=== PATIENT | female | born 1985 | race Caucasian/White ===

== ENCOUNTER 2025-06-30 23:11 | Inpatient (IN) ==
--- NOTE | 2025-06-30 23:38 | Emergency Department Note ---
Impression & Plan Sepsis, Mastitis, Hypomagnesemia admit to the [facility] ED Provider Note NAME: RUPA LUI AGE: 40 SEX: Female INFORMANT: Patient ED PROVIDER(S): Sarah Mason DO CHIEF COMPLAINT: Right breast pain PLAN: Disposition: Admit to the [facility] MEDICAL DECISION MAKING: This is a 40-year-old female patient presents to the emergency department with right sided breast pain/chest pain. Symptoms started around 730 this evening and were associated with fever, headache, vomiting and fatigue. On physical exam, the patient has obvious mastitis to the right breast. She is not currently breast-feeding and her youngest child is 8. she does describe having a previous episode of mastitis while she was breast-feeding. Laboratory studies reveal white blood cell count of 13.9 with 89% neutrophils consistent with a left shift. Lactate was positive at 2.8. Patient's hemoglobin is slightly low at 11.5. Glucose is stable at 110. Renal function was normal. Magnesium was low at 1.4. Overall, patient appears to be septic from a right breast mastitis. Her pain was treated with IV Toradol and IV Dilaudid. She started on IV vancomycin after blood cultures were obtained. Care/management discussed with: manager bridge and [facility] Triage Nursing notes: reviewed and agree With them. Vital Signs: reviewed and remarkable for tachycardia and fever Additional History obtained from: patient's was at the bedside Chronic Medical/Social Conditions affecting care: none Differential Diagnosis: sepsis, mastitis, pneumonia, cellulitis Diagnostics, independently interpreted by me: ECG: sinus tachycardia at a rate of 109. There is no ST segment elevation or signs of ischemia Cardiac Monitoring: sinus tachycardia at 114 Imaging studies: portable chest x-ray: no acute pulmonary infiltrates or consolidation as per my independent interpretation. HPI: 40 year old Female arrives for evaluation of Right-sided breast pain. patient explains that she has been feeling fatigued over the past couple of days but tonight around 7:30 PM spiked a high fever and developed severe right sided breast pain. She also describes a headache and nausea/vomiting. PAST MEDICAL HISTORY: Anxiety, SOCIAL HISTORY: patient is on [employer] and lives with her and children. She is not currently breast-feeding. Her youngest child is 8 years old. HOME MEDICATIONS: See list ALLERGIES: none VITALS: See Below PHYSICAL EXAMINATION: HEENT: Head - normocephalic and atraumatic. Pupils are equal, round, and reactive to light. Extraocular eye muscles are intact, and sclera are anicteric. Nose - moist nasal mucosa without discharge. Mouth - moist buccal mucosa. Oropharynx is nonerythematous and there is no tonsillar exudate or edema noted. Neck: Supple; no JVD, nuchal rigidity, cervical lymphadenopathy. Chest: Exquisite tenderness to palpation of the right breast. There is erythema and warmth noted to the inferior In the middle aspect of the breast. Heart: Tachycardic rate and regular rhythm. There is a normal S1 and S2 with no murmurs, clicks, or gallops appreciated. Lungs: Clear to auscultation bilaterally with no wheezes, rales, or rhonchi. Abdomen: Soft, completely nontender, nondistended, with good bowel sounds. There are no palpable pulsatile masses or hepatosplenomegaly. There is no guarding, rigidity, or rebound noted. Extremities: No evidence of cyanosis, clubbing, or edema. There are easily palpable peripheral pulses. Skin: warm and dry with good turgor and no rashes. emergency department treatment: pvc monitor, IV normal saline bolus-30 mL/kg per ideal body weight. IV Toradol, IV Zofran and IV Dilaudid. IV vancomycin, IV Tylenol, IV magnesium replacement emergency department course: The patient was evaluated in room C-10. A complete history and physical was performed. A septic protocol was performed. The patient was bolused at 30 mL/kg of normal saline per ideal body weight. She was given a dose of IV Dilaudid and IV Zofran for significant pain she was experiencing in her right breast. After blood cultures were obtained, the patient was started on IV vancomycin. She was given a dose of IV Tylenol for fever. She had persistent pain with given a dose of IV Toradol. Patient was noted to be hypomagnesemic. She was started on IV magnesium replacement. The case was discussed [facility] the [facility] and they will evaluate for further inpatient care. Overall, the patient is feeling slightly better. I have personally spent greater than 30 minutes of critical care time in the direct management of this patient. This includes bedside care, interpretation of diagnostic studies, and testing, discussion with consultants, patient, and family members, and other required patient management activities. This 30 minutes is in excess of all separately billable procedures. Past Med/Surg History Problem List (Updated 07/01/25 @ 03:10 by Sarah Mason DO) Hypomagnesemia (Acute) Mastitis (Acute) Sepsis (Acute) Social History Smoking Status: Never smoker Preferred Language: [place] Feels Safe at Home: Yes Allergies Allergies Allergy/AdvReac Type Severity Reaction Status Date / Time No Known Allergies Allergy Verified 07/01/25 00:16 Home Meds Home Medications Medication Instructions Recorded Confirmed clonazepam 0.5 mg tablet 0.5 mg PO BID PRN Anxiety 07/01/25 07/01/25 desvenlafaxine succinate 50 mg 50 mg PO DAILY 07/01/25 07/01/25 tablet,extended release 24 hr (Pristiq) Results & Data (ED) Vital Signs Vital Signs - 24 hr 06/30/25 23:12 06/30/25 23:20 06/30/25 23:20 Temperature 39.3 C H Temperature Source Oral Pulse Rate 114 H Pulse Rate [Finger] 105 H Pulse Rate from SpO2 Sensor Pulse Rhythm Regular Pulse Rhythm [Finger] Regular Pulse Strength Normal Pulse Strength [Finger] Normal Respiratory Rate 20 20 Respiratory Effort / Characteristics Non-Labored Spontaneous Non-Labored Spontaneous Respiratory Depth Normal Normal Respiratory Pattern Regular Regular Blood Pressure 152/82 H Blood Pressure [Left Arm] 142/81 H Blood Pressure Mean 105 Blood Pressure Mean [Left Arm] 101 Blood Pressure Position [Left Arm] Pulse Oximetry 99 95 Oxygen Delivery Method Room Air Room Air Room Air Sepsis Recent Fever Within 48 Hours No Sepsis New/Unexplained Change in Mental Status No Sepsis Action Taken by Nursing Physician Notified 06/30/25 23:39 07/01/25 00:00 07/01/25 00:15 Temperature Temperature Source Pulse Rate 110 H 103 H 99 H Pulse Rate [Finger] Pulse Rate from SpO2 Sensor 218 H 102 H Pulse Rhythm Pulse Rhythm [Finger] Pulse Strength Pulse Strength [Finger] Respiratory Rate 22 22 22 Respiratory Effort / Characteristics Respiratory Depth Respiratory Pattern Blood Pressure 132/78 122/76 124/71 Blood Pressure [Left Arm] Blood Pressure Mean 96 91 86 Blood Pressure Mean [Left Arm] Blood Pressure Position [Left Arm] Pulse Oximetry 97 94 95 Oxygen Delivery Method Sepsis Recent Fever Within 48 Hours Sepsis New/Unexplained Change in Mental Status Sepsis Action Taken by Nursing 07/01/25 00:30 07/01/25 00:45 07/01/25 01:18 Temperature Temperature Source Pulse Rate 90 84 86 Pulse Rate [Finger] Pulse Rate from SpO2 Sensor 86 84 Pulse Rhythm Pulse Rhythm [Finger] Pulse Strength Pulse Strength [Finger] Respiratory Rate 24 24 23 Respiratory Effort / Characteristics Respiratory Depth Respiratory Pattern Blood Pressure 120/73 129/73 103/58 L Blood Pressure [Left Arm] Blood Pressure Mean 80 91 73 Blood Pressure Mean [Left Arm] Blood Pressure Position [Left Arm] Pulse Oximetry 96 96 95 Oxygen Delivery Method Sepsis Recent Fever Within 48 Hours Sepsis New/Unexplained Change in Mental Status Sepsis Action Taken by Nursing 07/01/25 01:20 Temperature 36.9 C Temperature Source Oral Pulse Rate Pulse Rate [Finger] 83 Pulse Rate from SpO2 Sensor Pulse Rhythm Pulse Rhythm [Finger] Regular Pulse Strength Pulse Strength [Finger] Normal Respiratory Rate 20 Respiratory Effort / Characteristics Non-Labored Spontaneous Respiratory Depth Normal Respiratory Pattern Blood Pressure Blood Pressure [Left Arm] 103/58 L Blood Pressure Mean Blood Pressure Mean [Left Arm] 73 Blood Pressure Position [Left Arm] Lying Pulse Oximetry 95 Oxygen Delivery Method Room Air Sepsis Recent Fever Within 48 Hours Sepsis New/Unexplained Change in Mental Status Sepsis Action Taken by Nursing Laboratory Data 06/30/25 23:28 06/30/25 23:28 Lab Results 06/30/25 07/01/25 07/01/25 Range/Units 23:28 01:07 01:29 WBC 13.94 H (4.8-10.8) K/ul RBC 4.38 (4.20-5.40) M/uL Hgb 11.5 L (12.0-16.0) g/dl Hct 34.8 L (37.0-47.0) % MCV 79.5 L (80.0-100.0) fL MCH 26.3 (25.0-34.0) pg MCHC 33.0 (32.0-36.0) g/dL RDW Std Deviation 41.2 (36.4-46.3) fL RDW Coeff of Gypsy 14.3 (11.5-14.5) % Plt Count 286 (130-400) K/uL MPV 9.5 (9.4-12.4) fL Immature Gran % (Auto) 0.6 % Neut % (Auto) 89.0 % Lymph % (Auto) 4.2 % [place] % (Auto) 5.4 % Eos % (Auto) 0.6 % Baso % (Auto) 0.2 % Neut # (Auto) 12.41 H (1.40-6.50) K/uL Lymph # (Auto) 0.59 L (1.20-3.40) K/uL [place] # (Auto) 0.75 H (0.11-0.59) K/uL Eos # (Auto) 0.08 (0.00-0.50) K/uL Baso # (Auto) 0.03 (0.00-0.20) K/uL Immature Gran # (Auto) 0.08 (0.01-0.20) K/uL Sodium 134 L (136-145) mmol/L Potassium 3.4 L (3.5-5.1) mmol/L Chloride 100 (98-107) mmol/L Carbon Dioxide 23 (21-32) mmol/L Anion Gap 11 (3-11) BUN 7 (6-23) mg/dl Creatinine 0.64 (0.6-1.2) mg/dl Est Cr Clr Drug Dosing 136.6 ml/min eGFR 115.21 BUN/Creatinine Ratio 10.9 (10-20) Glucose 110 H (70-99(Fasting)) mg/dl Lactate 2.8 H* 2.2 H* (0.4-2.0) mmol/L Calcium 8.8 (8.6-10.3) mg/dl Magnesium 1.4 L (1.7-2.4) mg/dl Total Bilirubin 0.7 (0.2-1.0) mg/dl Direct Bilirubin 0.1 (0-0.2) mg/dl AST 18 (13-39) U/L ALT 15 (7-52) U/L Alkaline Phosphatase 69 (34-104) U/L Troponin I High Sens < 2.3 (0-14) pg/ml Total Protein 6.9 (6.0-8.3) gm/dl Albumin 4.0 (3.4-5.0) gm/dl Procalcitonin 0.17 (0-0.5) ng/ml Urine Color Yellow Urine Appearance Clear (Clear) Urine pH 6.5 (4.5-7.5) Ur Specific [place] 1.010 (1.000-1.030) Urine Protein Negative (Negative) Urine Glucose (UA) Negative (Negative) Urine Ketones Negative (Negative) Urine Blood Negative (Negative) Urine Nitrite Negative (Negative) Urine Bilirubin Negative (Negative) Urine Urobilinogen Negative (Negative) Ur Leukocyte Esterase Negative (Negative) Urine Test Negative (Negative) Urine Comment Administered Medications Magnesium Sulfate/Dextrose (Magnesium Sulfate / D5w) 1 gm in 100 mls @ 50 mls/hr IV ONE STA Stop: 07/01/25 03:42 Last Admin: 07/01/25 02:16 Dose: 50 mls/hr Documented By: FLORENCIA Discontinued Medications Acetaminophen (Acetaminophen 500 Mg Tab) 1,000 mg PO NOW STA Stop: 06/30/25 23:33 Last Admin: 07/01/25 00:02 Dose: Not Given Documented By: FLORENCIA Hydromorphone HCl (Hydromorphone Inj 0.5 Mg/0.5 Ml Syr) 0.5 mg IV NOW STA Stop: 06/30/25 23:33 Last Admin: 06/30/25 23:40 Dose: 0.5 mg Documented By: FLORENCIA Sodium Chloride (Nss) 1,000 mls @ 999 mls/hr IV .Q1H1M LINDA Stop: 07/01/25 01:30 Last Infusion: 07/01/25 01:58 Dose: Infused Documented By: Admin: 07/01/25 00:45 Dose: 999 mls/hr Documented By: Infusion: 07/01/25 00:45 Dose: Infused Documented By: Admin: 06/30/25 23:42 Dose: 999 mls/hr Documented By: FLORENCIA Vancomycin HCl 2,000 mg/ (Sodium Chloride) 540 mls @ 200 mls/hr IV NOW ONE Stop: 07/01/25 02:23 Last Admin: 07/01/25 00:30 Dose: 200 mls/hr Documented By: FLORENCIA Acetaminophen (Ofirmev) 1,000 mg in 100 mls @ 400 mls/hr IV NOW STA Stop: 07/01/25 00:11 Last Infusion: 07/01/25 00:31 Dose: Infused Documented By: Admin: 07/01/25 00:12 Dose: 400 mls/hr Documented By: FLORENCIA Magnesium Sulfate/Dextrose (Magnesium Sulfate / D5w) 1 gm in 100 mls @ 100 mls/hr IV NOW STA Stop: 07/01/25 01:37 Last Infusion: 07/01/25 02:15 Dose: Infused Documented By: Admin: 07/01/25 01:14 Dose: 100 mls/hr Documented By: FLORENCIA Ioversol (Optiray 320 125ml) 118 ml IV ONCE ONE Stop: 07/01/25 02:56 Last Admin: 07/01/25 02:55 Dose: 118 ml Documented By: JASBIR Ketorolac Tromethamine (Ketorolac Tromethamine 15 Mg/Ml Vial) 15 mg IV NOW STA Stop: 06/30/25 23:33 Last Admin: 06/30/25 23:40 Dose: 15 mg Documented By: FLORENCIA Ondansetron HCl (Ondansetron Inj 2 Mg/Ml 2 Ml Vial) 4 mg IV NOW STA Stop: 06/30/25 23:33 Last Admin: 06/30/25 23:40 Dose: 4 mg Documented By: FLORENCIA Potassium Chloride (Potassium Chloride Crtab 20 Meq Tabcr) 40 meq PO NOW STA Stop: 07/01/25 01:38 Last Admin: 07/01/25 02:17 Dose: 40 meq Documented By: FLORENCIA Discharge Plan Visit Data Chief Complaint: Breast Pain/Problems Stated Complaint: PAIN UNDER RT ARM, RT BREAST, HEADACHE, VOMITING ED Provider: Sarah Mason Discharge Problem: Sepsis, Mastitis, Hypomagnesemia Condition: Critical Forms Stand Alone Forms: [facility] Prescriptions Prescriptions: No Action clonazepam 0.5 mg Tablet 0.5 mg PO BID PRN (Reason: Anxiety) desvenlafaxine succinate [Pristiq] 50 mg Tablet Extended Release 24 Hr 50 mg PO DAILY Referrals Referrals: PCP,NO [Primary Care Provider] -
[2025-06-30] MEDS: KETOROLAC TROMETHAMINE 15 MG/ML VIAL IV STA (23:40)
[2025-06-30] MEDS: ACETAMINOPHEN 500 MG TAB PO STA (23:40)
[2025-06-30] MEDS: ONDANSETRON INJ 2 MG/ML 2 ML VIAL IV STA (23:40)
[2025-06-30] MEDS: HYDROmorphone INJ 0.5 MG/0.5 ML SYR IV STA (23:40)
[2025-06-30] MEDS: SODIUM CHLORIDE 0.9% 1,000 ML IV SCH (23:42)
[2025-06-30] MEDS ORDERED: VANCOMYCIN CONSULT ACTIVE PRN (23:42)
[2025-07-01 00:12] LABS: Hematocrit (blood only) 34.8 % (37.0-47.0); Hemoglobin 11.5 g/dl (12.0-16.0); Immature Granulocytes # (auto) 0.08 K/uL (0.01-0.20); Immature Granulocytes % (auto) 0.6 %; Mean Corpuscular Hemoglobin 26.3 pg (25.0-34.0); Mean Corpuscular Volume 79.5 fL (80.0-100.0); Platelet Count 286 K/uL (130-400); RDW Standard Deviation 41.2 fL (36.4-46.3); Red Blood Count 4.38 M/uL (4.20-5.40); White Blood Count 13.94 K/ul (4.8-10.8)
[2025-07-01] MEDS: ACETAMINOPHEN 1,000 MG/100 ML VIAL IV STA (00:12)
[2025-07-01 00:28] LABS: Alanine Aminotransferase 15 U/L (7-52); Alkaline Phosphatase 69 U/L (34-104); Anion Gap 11 (3-11); Bilirubin,Total 0.7 mg/dl (0.2-1.0); Blood Urea Nitrogen 7 mg/dl (6-23); Calcium 8.8 mg/dl (8.6-10.3); Carbon Dioxide 23 mmol/L (21-32); Chloride 100 mmol/L (98-107); Creatinine Clr Calc Pharmacy 136.6 ml/min; Glucose 110 mg/dl (70-99(Fasting)); Magnesium 1.4 mg/dl (1.7-2.4); Potassium 3.4 mmol/L (3.5-5.1); Sodium 134 mmol/L (136-145); Total Protein 6.9 gm/dl (6.0-8.3)
[2025-07-01] MEDS: VANCOMYCIN HCL 2,000 MG in SODIUM CHLORIDE 0.9% 500 ML IV ONE (00:30)
[2025-07-01] MEDS: MAGNESIUM SULFATE / D5W 1 GM/100 ML BAG IV STA ×2 (01:14→02:16)
[2025-07-01 01:24] LABS: Appearance Urine Clear (Clear); Glucose Urine UA Negative (Negative)
--- NOTE | 2025-07-01 01:40 | History & Physical Report ---
Date of Service July 01, 2025 Assessment & Plan (1) Severe sepsis: Plan: Assessment and plan below following discussion of case with ED provider and reviewing patient history/pertinent normal/abnormal diagnostic test results. Severe sepsis SIRS plus lactic acidosis Secondary to right breast mastitis rule out abscess Bilateral forearm pruritic lesions possible poison johana dermatitis Hyperglycemia rule out DM Hypokalemia, hyperglycemia New onset anemia possibly from heavy menses Incidental finding of thyroid nodule Mood disorder, stable Admit to med/tele CS, doxycycline and Zosyn Monitor lactic acid response to IVF Ultrasound right breast rule out abscess General Surgery consult if ultrasound shows abscess. N.p.o. until ultrasound resulted. Topical steroid course for possible poison johana dermatitis. Check TSH, outpatient thyroid ultrasound Check hemoglobin A1c Replace electrolytes Anemia workup, outpatient Special Distribution Clerk consult for heavy menses DVT prophylaxis. SCDs Re: Heavy menses Full code Patient requesting updates providers. Mr. Carmelo Posada, contact #[phone]. Text document was generated using [employer] voice recognition software. It may contain grammatical or spelling errors. Kindly contact undersigned for clarification of any documentation item in question. History of Present Illness Chief Complaint: Right breast swelling Primary Care Provider: NO PCP History obtained from patient, family, and records. Medical history significant for mood disorder. Last week, patient noted achy bumps on her right armpit. Yesterday, patient noticed progressive painful swelling of the right breast. Patient currently not breast-feeding. No recollection of trauma. Pleuritic chest pain from right breast swelling with SOB. No cough symptoms. Self-limited episodes of mastitis when she was breast-feeding her children in the past. Achy headache symptoms from being sick. Nausea, emesis symptoms without abdominal pain. Patient currently with menses which is usually heavy. Vancomycin administered at the ER. 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 Allergies Allergy/AdvReac Type Severity Reaction Status Date / Time No Known Allergies Allergy Verified 07/01/25 00:16 Home Medications Medication Instructions Recorded Confirmed Type clonazepam 0.5 mg tablet 0.5 mg PO BID PRN Anxiety 07/01/25 07/01/25 History desvenlafaxine succinate 50 mg 50 mg PO DAILY 07/01/25 07/01/25 History tablet,extended release 24 hr (Pristiq) Past Med/Surg History Problem List (Updated 07/01/25 @ 06:33 by Kirit Mathews MD) Severe sepsis Hypomagnesemia (Acute) Mastitis (Acute) Sepsis (Acute) Social History Smoking Status: Never smoker Hx Alcohol Use: No Hx Substance Use: No Preferred Language: Ethiopian Communication Ability: Effective Beam Racker Required: No Current Living Situation: Family Feels Safe at Home: Yes Assistive Devices: Denture - Upper, Denture - Lower and Glasses Review of Systems Review of Systems: As per HPI, itchy rash on both forearms noticed after being outside home a few days ago, all other systems reviewed and negative Physical Exam Physical Exam: GENERAL: Slightly uncomfortable, obese, no respiratory distress SKIN: Pallor, warm HEENT: Pale palpebral conjunctivae, no ptosis, dry buccal mucosa NECK : Supple, no tenderness CHEST : CTA, tender right breast swelling HEART : Tachycardic, no obvious murmurs ABDOMEN: Some distention, nontender EXTREMITIES : Thickened brownish patch right wrist and left forearm with superficial blister, no LE swelling/tenderness, palpable pulses, no other conspicuous deformities noted NEUROLOGIC : Coherent, no facial asymmetry, no other gross focality Results & Data Results & Data Vital Signs (Past 12 Hours) Vital Signs Temp Pulse Pulse Resp BP BP Pulse Ox 07/01/25 01:20 36.9 C 83 20 103/58 L 95 07/01/25 00:45 84 24 129/73 96 07/01/25 00:30 90 24 120/73 96 07/01/25 00:15 99 H 22 124/71 95 07/01/25 00:00 103 H 22 122/76 94 06/30/25 23:39 110 H 22 132/78 97 06/30/25 23:20 06/30/25 23:20 105 H 20 142/81 H 95 06/30/25 23:12 39.3 C H 114 H 20 152/82 H 99 O2 Del Method 07/01/25 01:20 Room Air 07/01/25 00:45 07/01/25 00:30 07/01/25 00:15 07/01/25 00:00 06/30/25 23:39 06/30/25 23:20 Room Air 06/30/25 23:20 Room Air 06/30/25 23:12 Room Air Laboratory Results Laboratory Results WBC 13.94 K/ul (4.8-10.8) H 06/30/25: RBC 4.38 M/uL (4.20-5.40) 06/30/25: Hgb 11.5 g/dl (12.0-16.0) L 06/30/25: Hct 34.8 % (37.0-47.0) L 06/30/25: MCV 79.5 fL (80.0-100.0) L 06/30/25: MCH 26.3 pg (25.0-34.0) 06/30/25: MCHC 33.0 g/dL (32.0-36.0) 06/30/25: RDW Std Deviation 41.2 fL (36.4-46.3) 06/30/25: RDW Coeff of Gypsy 14.3 % (11.5-14.5) 06/30/25 Plt Count 286 K/uL (130-400) 06/30/25: MPV 9.5 fL (9.4-12.4) 06/30/25: Immature Gran % (Auto) 0.6 % 06/30/25: Neut % (Auto) 89.0 % 06/30/25: Lymph % (Auto) 4.2 % 06/30/25: [place] % (Auto) 5.4 % 06/30/25: Eos % (Auto) 0.6 % 06/30/25: Baso % (Auto) 0.2 % 06/30/25: Neut # (Auto) 12.41 K/uL (1.40-6.50) H 06/30/25: Lymph # (Auto) 0.59 K/uL (1.20-3.40) L 06/30/25: [place] # (Auto) 0.75 K/uL (0.11-0.59) H 06/30/25: Eos # (Auto) 0.08 K/uL (0.00-0.50) 09/18/25 23:28 Baso # (Auto) 0.03 K/uL (0.00-0.20) 06/30/25 23:28 Immature Gran # (Auto) 0.08 K/uL (0.01-0.20) 06/30/25 23:28 Sodium 134 mmol/L (136-145) L 06/30/25 23:28 Potassium 3.4 mmol/L (3.5-5.1) L 06/30/25 23: Chloride 100 mmol/L (98-107) 06/30/25 23: Carbon Dioxide 23 mmol/L (21-32) 06/30/25 23: Anion Gap 11 (3-11) 06/30/25 23: BUN 7 mg/dl (6-23) 06/30/25 23: Creatinine 0.64 mg/dl (0.6-1.2) 06/30/25 23: Est Cr Clr Drug Dosing 136.6 ml/min 06/30/25 23: eGFR 115.21 06/30/25 23: BUN/Creatinine Ratio 10.9 (10-20) 06/30/25 23: Glucose 110 mg/dl (70-99(Fasting)) H 06/30/25 23: Lactate 2.8 mmol/L (0.4-2.0) H* 06/30/25 23: Calcium 8.8 mg/dl (8.6-10.3) 06/30/25 23: Magnesium 1.4 mg/dl (1.7-2.4) L 06/30/25 23: Total Bilirubin 0.7 mg/dl (0.2-1.0) 06/30/25 23: Direct Bilirubin 0.1 mg/dl (0-0.2) 06/30/25 23: AST 18 U/L (13-39) 06/30/25 23: ALT 15 U/L (7-52) 06/30/25 23: Alkaline Phosphatase 69 U/L (34-104) 06/30/25 23: Troponin I High Sens < 2.3 pg/ml (0-14) 06/30/25 23: Total Protein 6.9 gm/dl (6.0-8.3) 06/30/25 23:28 Albumin 4.0 gm/dl (3.4-5.0) 06/30/25 23:28 Procalcitonin 0.17 ng/ml (0-0.5) 06/30/25 23:28 Urine Color Yellow 07/01/25 01:07 Urine Appearance Clear (Clear) 07/01/25 01:07 Urine pH 6.5 (4.5-7.5) 07/01/25 01:07 Ur Specific [place] 1.010 (1.000-1.030) 07/01/25 01:07 Urine Protein Negative (Negative) 07/01/25 01:07 Urine Glucose (UA) Negative (Negative) 07/01/25 01:07 Urine Ketones Negative (Negative) 07/01/25 01:07 Urine Blood Negative (Negative) 07/01/25 01:07 Urine Nitrite Negative (Negative) 07/01/25 01:07 Urine Bilirubin Negative (Negative) 07/01/25 01:07 Urine Urobilinogen Negative (Negative) 07/01/25 01:07 Ur Leukocyte Esterase Negative (Negative) 07/01/25 01:07 Urine Comment 07/01/25 01:07 CT chest: Diffuse ground-glass hase with subpleural atelectasis are noted involving both lower lobes - possibility of sequelae of recent infection likely Adequate contrast bolus without evidence of pulmonary embolism. The central airways are patent. The lungs are clear. No pleural effusion. The heart, aorta, and pulmonary arteries are of normal size and configuration. There are no appreciable coronary artery and aortic atherosclerotic calcifications. No pericardial effusion is identified. The thyroid shows a 17 mm nodule in right lobe- advised ultrasound correlation. No mediastinal, hilar, or axillary lymphadenopathy is noted. No suspicious lytic or sclerotic osseous lesions are identified. IMPRESSION: Diffuse ground-glass hase with subpleural atelectasis are noted involving both lower lobes - possibility of sequelae of recent infection likely No evidence of pulmonary embolism. No obvious mass seen in visualized part of left breast- advised clinical correlation and ultrasound. Diagnostic Findings EKG as per my interpretation : rate 110, sinus tachycardia, normal axis, incomplete RBBB, no ischemia
[2025-07-01] MEDS ORDERED: AMPICILLIN/SULBACTAM SOD 3,000 MG/100 ML BAG IV STA (01:42)
[2025-07-01] MEDS: POTASSIUM CHLORIDE CRTAB 20 MEQ TABCR PO STA (02:17)
[2025-07-01] MEDS: OPTIRAY 320 125ml IV ONE (02:55)
--- NOTE | 2025-07-01 03:09 | XRay Report ---
Exam(s): XR CXR 1 VIEW EXAM: XR Chest, 1 View CLINICAL HISTORY: Reason for exam: Sepsis. TECHNIQUE: Frontal view of the chest. COMPARISON: No relevant prior studies available. FINDINGS: Lungs: Mild to moderate peribronchial thickening of the central lower lobe bronchi. No consolidation. Pleural space: Unremarkable. No pneumothorax. Heart: Unremarkable. No cardiomegaly. Mediastinum: Unremarkable. Normal mediastinal contour. Bones/joints: Unremarkable. No acute fracture. IMPRESSION: Bronchitis, which may be of infectious or inflammatory etiologies. No consolidation or pleural effusion. Electronically signed by: Maci Leyva MD 07/01/25 03:09 AM
--- NOTE | 2025-07-01 03:38 | CT Scan Report ---
EXAM: CT angio chest PE protocol CLINICAL HISTORY: cp sob, L breast swelling TECHNIQUE: Contiguous axial images were obtained from the neck base through the upper abdomen following intravenous administration of iodinated contrast material. Angiographic images were processed, 3D MIP images were acquired for interpretation. If IV contrast material had not been administered, the likelihood of detecting abnormalities relevant to the patient's condition would have been substantially decreased. Coronal and sagittal 3-D MIPs were likewise performed and indicated to increase the sensitivity of detectin diffuse clinically relevant pathology. CT scan was performed according to ALARA (as low as reasonably achievable). COMPARISON: None. FINDINGS: Diffuse ground-glass hase with subpleural atelectasis are noted involving both lower lobes - possibility of sequelae of recent infection likely Adequate contrast bolus without evidence of pulmonary embolism. The central airways are patent. The lungs are clear. No pleural effusion. The heart, aorta, and pulmonary arteries are of normal size and configuration. There are no appreciable coronary artery and aortic atherosclerotic calcifications. No pericardial effusion is identified. The thyroid shows a 17 mm nodule in right lobe- advised ultrasound correlation. No mediastinal, hilar, or axillary lymphadenopathy is noted. No suspicious lytic or sclerotic osseous lesions are identified. IMPRESSION: Diffuse ground-glass hase with subpleural atelectasis are noted involving both lower lobes - possibility of sequelae of recent infection likely No evidence of pulmonary embolism. No obvious mass seen in visualized part of left breast- advised clinical correlation and ultrasound. Electronically signed by Sulaiman Hawkins 07-01-2025 03:37 AM
[2025-07-01] MEDS: POTASSIUM CHLORIDE 20 MEQ in LACTATED RINGER'S 1,000 ML IV STA (04:40)
[2025-07-01] MEDS: PIPERACILLIN/TAZOBACTAM 4.5 GM/100 ML BAG IV STA (04:46)
[2025-07-01] MEDS: KETOROLAC TROMETHAMINE 15 MG/ML VIAL IV PRN (05:15)
[2025-07-01] MEDS: LORATADINE 10 MG TAB PO ONE (05:36)
[2025-07-01] MEDS: CLOBETASOL PROPIONATE 0.05% CREAM 15 GM TUBE EXT SCH (05:36)
[2025-07-01] MEDS: diphenhydrAMINE 2%/ZINC 0.1% CREAM 28.4GM TUBE EXT PRN (05:36)
[2025-07-01 07:41] LABS: Hematocrit (blood only) 33.8 % (37.0-47.0); Hemoglobin 11.4 g/dl (12.0-16.0); Mean Corpuscular Hemoglobin 27.4 pg (25.0-34.0); Mean Corpuscular Volume 81.3 fL (80.0-100.0); Platelet Count 257 K/uL (130-400); RDW Standard Deviation 42.9 fL (36.4-46.3); Red Blood Count 4.16 M/uL (4.20-5.40); Reticulocytes # 0.050 10^6/uL (0.020-0.100); White Blood Count 19.50 K/ul (4.8-10.8)
[2025-07-01] MEDS ORDERED: AMPICILLIN/SULBACTAM SOD 3,000 MG/100 ML BAG IV SCH (08:00)
[2025-07-01 08:01] LABS: Immature Granulocytes # (auto) 0.13 K/uL (0.01-0.20); Immature Granulocytes % (auto) 0.7 %
[2025-07-01 08:03] LABS: Anion Gap 7.0 (3-11); Blood Urea Nitrogen 5.0 mg/dl (6-23); Calcium 7.7 mg/dl (8.6-10.3); Carbon Dioxide 23.0 mmol/L (21-32); Chloride 106.0 mmol/L (98-107); Creatinine Clr Calc Pharmacy 153.2 ml/min; Glucose 119.0 mg/dl (70-99(Fasting)); Iron 16.0 mcg/dl (35-150); Magnesium 2.2 mg/dl (1.7-2.4); Potassium 4.1 mmol/L (3.5-5.1); Sodium 136.0 mmol/L (136-145); Transferrin 297.0 mg/dl (200-360)
[2025-07-01 08:15] LABS: Ferritin 26.2 ng/ml (8-388); Thyroid Stimulating Hormone 3.141 uIu/ml (0.300-4.500)
[2025-07-01 08:20] LABS: Folate (Folic Acid),Ser orPlas 10.44 ng/ml (>5.38)
[2025-07-01 08:21] LABS: Vitamin B12 493.0 pg/ml (180-914)
[2025-07-01 08:43] LABS: Hemoglobin A1C 5.8 % (4.5-5.6)
--- NOTE | 2025-07-01 09:28 | Electrocardiogram Report ---
Test Reason : Blood Pressure : */* mmHG Vent. Rate : 109 BPM Atrial Rate : 109 BPM P-R Int : 146 ms QRS Dur : 78 ms QT Int : 332 ms P-R-T Axes : 39 41 32 degrees QTcB Int : 447 ms Sinus tachycardia Otherwise normal ECG No previous ECGs available Confirmed by Koko Anderson ([id number]) on 07/01/2025 9:27:48 AM Referred By: REFERRED SELF Confirmed By: Koko Anderson
[2025-07-01] MEDS: PROMETHAZINE 12.5 MG/50.5 ML BAG IV PRN (09:42)
[2025-07-01] MEDS: DOXYCYCLINE HYCLATE 100 MG CAP PO SCH (09:42)
[2025-07-01] MEDS: clonazePAM 0.5 MG TAB PO PRN (09:43)
[2025-07-01] MEDS: PIPERACILLIN/TAZOBACTAM 4.5 GM/100 ML BAG IV SCH (09:44)
[2025-07-01] MEDS ORDERED: ONDANSETRON INJ 2 MG/ML 2 ML VIAL IV PRN (12:25)
--- NOTE | 2025-07-01 12:34 | Communication Note ---
Date of Service: July 01, 2025 Patient was seen and examined at bedside. 40-year-old female with PMH of mood disorder presents with painful swelling of the right breast and achy bumps on her right armpit. 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 No recollection of trauma, patient not breast-feeding currently. Patient denies any cough symptoms or fever at home. She has a history of self-limited episodes of mastitis when she was breast-feeding her children in the past. Patient had associated symptoms of nausea, emesis without abdominal pain. Patient also has history of heavy menses. Patient is being managed for the following: Admitting imagings: CXR: Bronchitis, which may be of infectious or inflammatory etiologies. No consolidation or pleural effusion. CTA chest: No PE, no abnormality noted in right breast, Diffuse ground-glass base with subpleural atelectasis are noted involving both lower lobes - possibility of sequelae of recent infection likely. The thyroid shows a 17 mm nodule in right lobe- advised ultrasound correlation. Right mastitis, rule out abscess Severe sepsis POA: Secondary to above. Lactic acid elevated and SARS positive at presentation. Patient presents with painful swelling of right breast, acute bumps in right armpit. See above. Lyme screen and MRSA nares neg. CTA chest as above, await US right breast. General Surgery consult if ultrasound shows abscess. Patient's temperature getting slightly better, pulse rate getting slightly better. Lactic acidosis resolved status post IV fluid. C/w gentle ivf since pt w/ poor po intake iso infection. Follow admitting blood culture, continue with doxycycline 07/01 and Zosyn 07/01. Infectious disease consult. Possible bronchitis: Likely in the setting of recent viral illness. CXR as above. Patient on antibiotic as above. Bilateral forearm pruritic lesion, possible poison johana dermatitis: Continue with steroid cream. New onset anemia: Possibly in the setting of heavy menses. Hemoglobin of 11.5 at presentation, iron profile with low iron, vitamin B12 and folate level WNL. Initiate iron supplementation once acute illness is over. Repeat iron levels/vitamin levels in 3 months as an outpatient. 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 Hypokalemia: Admitting potassium 3.4, repleted, resolved. Monitor. Incidental finding of thyroid nodule: As per CTA chest, see above. TSH wnl. Thyroid ultrasound as an outpatient. Mood disorder: Stable DVT prophylaxis. SCDs Re: Heavy menses Full code Patient Mr. Carmelo Posada, contact #[phone]. Updated plan of care at bedside. Text document was generated using [employer] voice recognition software. It may contain grammatical or spelling errors. Kindly contact undersigned for clarification of any documentation item in question. For detailed information on the patient, refer to today's H&P note.
--- NOTE | 2025-07-01 13:09 | Ultrasound Report ---
US breast RT limited CLINICAL HISTORY: swelling ro abscess COMPARISON STUDY: None FINDINGS: There is mild edema in the region of clinical concern in the right breast. No abscess seen. IMPRESSION: No abscess seen at the right breast. ACT 112: Negative or not required by law. Electronically signed by: Celestino Aponte M.D. 07/01/2025 1:08 PM
[2025-07-01] MEDS: SODIUM CHLORIDE 0.9% 1,000 ML IV SCH (14:32)
[2025-07-01] MEDS: ACETAMINOPHEN 325 MG TAB PO PRN (17:09)
[2025-07-02 06:20] LABS: Hematocrit (blood only) 29.9 % (37.0-47.0); Hemoglobin 9.9 g/dl (12.0-16.0); Mean Corpuscular Hemoglobin 27.3 pg (25.0-34.0); Mean Corpuscular Volume 82.4 fL (80.0-100.0); Platelet Count 244 K/uL (130-400); RDW Standard Deviation 45.0 fL (36.4-46.3); Red Blood Count 3.63 M/uL (4.20-5.40); White Blood Count 7.87 K/ul (4.8-10.8)
[2025-07-02 06:30] LABS: Anion Gap 3.0 (3-11); Blood Urea Nitrogen 6.0 mg/dl (6-23); Calcium 7.6 mg/dl (8.6-10.3); Carbon Dioxide 24.0 mmol/L (21-32); Chloride 110.0 mmol/L (98-107); Creatinine Clr Calc Pharmacy 145.6 ml/min; Glucose 116.0 mg/dl (70-99(Fasting)); Magnesium 2.1 mg/dl (1.7-2.4); Potassium 3.9 mmol/L (3.5-5.1); Sodium 137.0 mmol/L (136-145)
[2025-07-02] MEDS: DESVENLAFAXINE SUCCINATE ER TABLET PO SCH (07:53)
[2025-07-02] MEDS: POLYETHYLENE (MIRALAX) 17 GM PACK PO PRN (09:58)
--- NOTE | 2025-07-02 12:11 | Hospitalist Progress Note ---
Date of Service July 02, 2025 Assessment & Plan (1) Severe sepsis: Plan 40-year-old female with PMH of mood disorder presents with painful swelling of the right breast and achy bumps on her right armpit. 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 No recollection of trauma, patient not breast-feeding currently. Patient denies any cough symptoms or fever at home. She has a history of self-limited episodes of mastitis when she was breast-feeding her children in the past. Patient had associated symptoms of nausea, emesis without abdominal pain. Patient also has history of heavy menses. Patient is being managed for the following: Admitting imagings: CXR: Bronchitis, which may be of infectious or inflammatory etiologies. No consolidation or pleural effusion. CTA chest: No PE, no abnormality noted in right breast, Diffuse ground-glass base with subpleural atelectasis are noted involving both lower lobes - possibility of sequelae of recent infection likely. The thyroid shows a 17 mm nodule in right lobe- advised ultrasound correlation. Right mastitis, rule out abscess Severe sepsis POA: Secondary to above. Lactic acid elevated and SARS positive at presentation. Patient presents with painful swelling of right breast, acute bumps in right armpit. See above. Lyme screen and MRSA nares neg. CTA chest as above, await US right breast. General Surgery consult if ultrasound shows abscess. Vitals getting better, patient afebrile and pulse rate WNL. Lactic acidosis resolved status post IV fluid. Patient picking up on appetite, DC IV fluids. Follow admitting blood culture - NG24H, continue with doxycycline 07/01 and Zosyn 07/01. Patient reports significant improvement in right breast swelling/redness/pain. If continues to improve, possible DC tomorrow with oral antibiotic with the plan for close follow-up with PCP. Plan has been discussed with patient and her at bedside. Possible bronchitis: Likely in the setting of recent viral illness. CXR as above. Patient on antibiotic as above. Bilateral forearm pruritic lesion, possible poison johana dermatitis: Continue with steroid cream. New onset anemia: Possibly in the setting of heavy menses. Hemoglobin of 11.5 at presentation, iron profile with low iron, vitamin B12 and folate level WNL. Initiate iron supplementation once acute illness is over. Repeat iron levels/vitamin levels in 3 months as an outpatient. 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 Patient and her updated about anemia and need for supplement therapy and need for ongoing monitoring for anemia w/ PCP office. Hyperglycemia, Prediabetic: A1c of 5.8, recommended lifestyle modification/weight loss, repeat A1c in 3 months and follow-up with PCP for long-term monitoring. Patient and her has been updated. Hypokalemia: Admitting potassium 3.4, repleted, resolved. Monitor. Incidental finding of thyroid nodule: As per CTA chest, see above. TSH wnl. Thyroid ultrasound as an outpatient. Patient and her has been updated. Mood disorder: Stable DVT prophylaxis. SCDs Re: Heavy menses Full code Patient Mr. Carmelo Posada, contact #[phone]. Updated plan of care at bedside. Text document was generated using [employer] voice recognition software. It may contain grammatical or spelling errors. Kindly contact undersigned for clarification of any documentation item in question. Admission and Anticipated Discharge Date Admission Date: July 01, 2025 Subjective Patient was seen and examined at bedside. Patient was sitting up in chair, on room air, NAD, resting comfortably. Patient reports significant improvement in her pain and swelling under right breast, reports feeling better significantly. Patient has been afebrile since last night, has been able to eat better. Patient's at bedside who was also updated on plan of care. Physical Exam Physical Exam: GENERAL: RA, NAD, obese, no respiratory distress SKIN: Pallor, warm HEENT: Pale palpebral conjunctivae, no ptosis, moist buccal mucosa NECK : Supple, no tenderness CHEST : CTA, Rt breast erythema/swelling/tenderness improving. HEART : RRR, HR in 90s, no obvious murmurs ABDOMEN: No distention, nontender EXTREMITIES : Thickened brownish patch right wrist and left forearm with superficial blister, no LE swelling/tenderness, palpable pulses, no other conspicuous deformities noted NEUROLOGIC : Coherent, no facial asymmetry, no other gross focality Results & Data Results & Data Vital Signs (Past 12 Hours) Vital Signs Temp Pulse Pulse Resp BP Pulse Ox O2 Del Method 07/02/25 11:55 37.3 C 90 20 108/74 97 Room Air 07/02/25 08:14 36.5 C 83 20 100/66 96 Room Air 07/02/25 07:20 92 H 07/02/25 02:18 37.9 C H 80 16 102/64 93 Room Air
[2025-07-03 02:45] VITALS: RESP 16
[2025-07-03 06:26] LABS: Hematocrit (blood only) 33.5 % (37.0-47.0); Hemoglobin 11.1 g/dl (12.0-16.0); Mean Corpuscular Hemoglobin 27.3 pg (25.0-34.0); Mean Corpuscular Volume 82.3 fL (80.0-100.0); Platelet Count 282 K/uL (130-400); RDW Standard Deviation 44.9 fL (36.4-46.3); Red Blood Count 4.07 M/uL (4.20-5.40); White Blood Count 5.39 K/ul (4.8-10.8)
[2025-07-03 07:21] LABS: Anion Gap 7.0 (3-11); Blood Urea Nitrogen 4.0 mg/dl (6-23); Calcium 8.7 mg/dl (8.6-10.3); Carbon Dioxide 25.0 mmol/L (21-32); Chloride 107.0 mmol/L (98-107); Creatinine Clr Calc Pharmacy 145.6 ml/min; Glucose 113.0 mg/dl (70-99(Fasting)); Potassium 4.0 mmol/L (3.5-5.1); Sodium 139.0 mmol/L (136-145)
[2025-07-03 08:00] VITALS: PULSE 63; TEMP 98.4; O2SAT 96
--- NOTE | 2025-07-03 10:15 | Discharge Summary ---
Date of Service July 03, 2025 Admission HPI Per Admitting Provider History obtained from patient, family, and records. Medical history significant for mood disorder. Last week, patient noted achy bumps on her right armpit. Yesterday, patient noticed progressive painful swelling of the right breast. Patient currently not breast-feeding. No recollection of trauma. Pleuritic chest pain from right breast swelling with SOB. No cough symptoms. Self-limited episodes of mastitis when she was breast-feeding her children in the past. Achy headache symptoms from being sick. Nausea, emesis symptoms without abdominal pain. Patient currently with menses which is usually heavy. Vancomycin administered at the ER. 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 Admission Exam Per Admitting Provider GENERAL: Slightly uncomfortable, obese, no respiratory distress SKIN: Pallor, warm HEENT: Pale palpebral conjunctivae, no ptosis, dry buccal mucosa NECK : Supple, no tenderness CHEST : CTA, tender right breast swelling HEART : Tachycardic, no obvious murmurs ABDOMEN: Some distention, nontender EXTREMITIES : Thickened brownish patch right wrist and left forearm with superficial blister, no LE swelling/tenderness, palpable pulses, no other conspicuous deformities noted NEUROLOGIC : Coherent, no facial asymmetry, no other gross focality Principal Diagnosis Right mastitis, ruled out abscess Severe sepsis POA Possible bronchitis Possible poison johana dermatitis New onset anemia Prediabetic Incidental finding of thyroid nodule Discharge Exam GENERAL: RA, NAD, obese, no respiratory distress SKIN: Pallor, warm HEENT: Pale palpebral conjunctivae, no ptosis, moist buccal mucosa NECK : Supple, no tenderness CHEST : CTA, Rt breast erythema/swelling/tenderness improved significantly. HEART : RRR, HR wnl, no obvious murmurs ABDOMEN: No distention, nontender EXTREMITIES : Thickened brownish patch right wrist and left forearm with superficial blister, no LE swelling/tenderness, palpable pulses, no other conspicuous deformities noted NEUROLOGIC : Coherent, no facial asymmetry, no other gross focality Discharge Data Allergies Allergy/AdvReac Type Severity Reaction Status Date / Time No Known Allergies Allergy Verified 07/01/25 00:16 Consultations 07/01/25 01:32 ED Decision to Admit Stat 07/01/25 12:13 Consult Infectious Diseases Routine Ordered Studies 07/01/25 02:11 CT angio chest PE protocol Stat 07/01/25 04:56 US breast RT limited Stat Hospital Course (1) Severe sepsis: Plan 40-year-old female with PMH of mood disorder presents with painful swelling of the right breast and achy bumps on her right armpit. 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 No recollection of trauma, patient not breast-feeding currently. Patient denies any cough symptoms or fever at home. She has a history of self-limited episodes of mastitis when she was breast-feeding her children in the past. Patient had associated symptoms of nausea, emesis without abdominal pain. Patient also has history of heavy menses. Patient was managed for the following: Admitting imagings: CXR: Bronchitis, which may be of infectious or inflammatory etiologies. No consolidation or pleural effusion. CTA chest: No PE, no abnormality noted in right breast, Diffuse ground-glass base with subpleural atelectasis are noted involving both lower lobes - possibility of sequelae of recent infection likely. The thyroid shows a 17 mm nodule in right lobe- advised ultrasound correlation. Right mastitis, rule out abscess Severe sepsis POA: Secondary to above. Lactic acid elevated and SARS positive at presentation. Patient presents with painful swelling of right breast, acute bumps in right armpit. See above. Lyme screen and MRSA nares neg. CTA chest as above, await US right breast. General Surgery consult if ultrasound shows abscess. Patient is hemodynamically stable, right breast swelling/tenderness/erythema has significantly improved. Patient feels significantly better and back to baseline. Lactic acidosis resolved status post IV fluid. Follow admitting blood culture - NG48H, continue with doxycycline 07/01 and Zosyn 07/01. To p.o. antibiotic on discharge to complete 10-day course. Patient advised to report back to emergency for uncontrolled infection if with fever/increasing lethargy/ right breast swelling or tenderness or erythema increasing. Possible bronchitis: Likely in the setting of recent viral illness. CXR as above. Patient on antibiotic as above. Bilateral forearm pruritic lesion, possible poison johana dermatitis: Continue with steroid cream. New onset anemia: Possibly in the setting of heavy menses. Hemoglobin of 11.5 at presentation, iron profile with low iron, vitamin B12 and folate level WNL. Initiate iron supplementation once acute illness is over. Repeat iron levels/vitamin levels in 3 months as an outpatient. outpatient Intake Manager consult for heavy menses. Patient and her updated about anemia and need for supplement therapy and need for ongoing monitoring for anemia w/ PCP office. Hyperglycemia, Prediabetic: A1c of 5.8, recommended lifestyle modification/weight loss, repeat A1c in 3 months and follow-up with PCP for long-term monitoring. Patient and her has been updated. Hypokalemia: Admitting potassium 3.4, repleted, resolved. Monitor. Incidental finding of thyroid nodule: As per CTA chest, see above. TSH wnl. Thyroid ultrasound as an outpatient. Patient and her has been updated. Mood disorder: Stable DVT prophylaxis. SCDs Re: Heavy menses Full code Patient Mr. Carmelo Posada, contact #[phone]. Updated plan of care at bedside. Patient being discharged home with following instructions at the point of discharge: Follow-up with your primary care physician within a week time and likely you will need labs CBC/CMP/magnesium/phosphorus. For your right mastitis, you will be discharged on antibiotic to complete 10 days course. Probiotics will be added. While on doxycycline, avoid sun exposure, utilize sunscreen lotion when out in the sun, and take it w/ 8 ounces of water, stay upright for atleast half an hour after taking doxycycline. If increasing redness/swelling/tenderness of the right breast and if increasing fever or weakness, report to emergency immediately to rule out possible uncontro lled infection. Your blood culture has been negative for 2 days, recommend that you follow-up on final results of blood culture during your PCP visit within a week time of discharge. For your possible poison johana dermatitis, continue to use steroid cream as prescribed. As discussed at the bedside, you been diagnosed with anemia. You will be started on supplement, start taking iron supplement once antibiotic course is done for. You will need repeat iron studies in about 3 months time. As discussed at bedside, your A1c is 5.8 which means you are prediabetic. Recommend that you incorporate lifestyle modification including daily exercise regimen/weight loss/healthy diet. You will need repeat A1c in 3 months, coordinate with your PCP office for long-term monitoring. As discussed at the bedside, about 17 mm nodule was noted in the right thyroid lobe, you will need outpatient ultrasound, coordinate with your PCP office to set up the test. Take your medications as prescribed. Please make sure that you are able to get your medications today by calling your pharmacy before you leave the hospital so that your treatment continuity is not broken. Text document was generated using [employer] voice recognition software. It may contain grammatical or spelling errors. Kindly contact undersigned for clarification of any documentation item in question. Home Health Attestation I certify that this patient is under my care and that I, or a physicians assistant service manager working with me, had a face to-face encounter that meets the home health [id number] encounter requirements with this patient. The encounter with the patient was in whole, or in part, for the following medical condition, which is the primary reason for home health care (list medical condition): I certify that, based on my findings, the following services are medically necessary home health services: My clinical findings support the need for the above services because: Further, I certify that my clinical findings support that this patient is homebound (i.e. absences from home require considerable and taxing effort and are for medical reasons or jainism services or infrequently or of short duration when for other reasons) because: Certification for Home Health Services: Based on the above findings, I certify that this patient is confined to the home and needs intermittent long-term care, physical therapy and/or speech therapy or continues to need occupational therapy. The patient is under my care, and I have initiated the establishment of the plan of care. This patient will be followed by a physician who will periodically review the plan of care. Total Time Total Time Spent Total Time Spent (In Minutes): 45 Discharge Plan Discharge Items Patient Disposition: Home - Self-Care Reason For Visit: SEPSIS( PRIVATE PER REQ) Discharge Diagnosis: Right mastitis, ruled out abscess Severe sepsis POA Possible bronchitis Possible poison johana dermatitis New onset anemia Prediabetic Incidental finding of thyroid nodule Condition on Discharge: Critical Activity: Resume your previous activity Non-emergency contact: Primary Care Provider Call non-emergency contact if: you have any medication questions and your symptoms worsen Follow-up/Referrals: PCP,NO [Primary Care Provider] - Diet: Regular Addtl Attending Provider Instructions: Follow-up with your primary care physician within a week time and likely you will need labs CBC/CMP/magnesium/phosphorus. For your right mastitis, you will be discharged on antibiotic to complete 10 days course. Probiotics will be added. While on doxycycline, avoid sun exposure, utilize sunscreen lotion when out in the sun, and take it w/ 8 ounces of water, stay upright for atleast half an hour after taking doxycycline. If increasing redness/swelling/tenderness of the right breast and if increasing fever or weakness, report to emergency immediately to rule out possible uncontrolled infection. Your blood culture has been negative for 2 days, recommend that you follow-up on final results of blood culture during your PCP visit within a week time of discharge. For your possible poison johana dermatitis, continue to use steroid cream as prescribed. As discussed at the bedside, you been diagnosed with anemia. You will be started on supplement, start taking iron supplement once antibiotic course is done for. You will need repeat iron studies in about 3 months time. As discussed at bedside, your A1c is 5.8 which means you are prediabetic. Recommend that you incorporate lifestyle modification including daily exercise regimen/weight loss/healthy diet. You will need repeat A1c in 3 months, coordinate with your PCP office for long-term monitoring. As discussed at the bedside, about 17 mm nodule was noted in the right thyroid lobe, you will need outpatient ultrasound, coordinate with your PCP office to set up the test. Take your medications as prescribed. Please make sure that you are able to get your medications today by calling your pharmacy before you leave the hospital so that your treatment continuity is not broken. Pending Studies at Discharge: Yes Stand-Alone Forms: My [facility] Appies, Smoking Cessation Medications and DC Order Prescriptions: New doxycycline hyclate 100 mg Capsule 100 mg PO BID 7 Days Qty: 14 0RF clobetasol 0.05 % Cream 1 applic EXT BID 7 Days Qty: 15 0RF Anti-Itch(diphenhyd) with Zinc 2-0.1 % Cream 1 applic EXT QID PRN (Reason: itching) 7 Days Qty: 15 0RF amoxicillin-pot clavulanate 875-125 mg tablet 1 tab PO BID 7 Days Qty: 14 0RF Probiotic 3 billion cell capsule 3,000 mmu cells PO DAILY 10 Days Qty: 10 0RF Rx Instructions: administer with a meal ferrous fumarate 324 mg (106 mg iron) tablet 324 mg PO DAILY Qty: 30 0RF cyanocobalamin (vitamin B-12) 100 mcg tablet 100 mcg PO DAILY 30 Days Qty: 30 0RF folic acid 1 mg tablet 1 mg PO DAILY 30 Days Qty: 30 0RF Continued clonazepam 0.5 mg Tablet 0.5 mg PO BID PRN (Reason: Anxiety) desvenlafaxine succinate [Pristiq] 50 mg Tablet Extended Release 24 Hr 50 mg PO DAILY Discharge Orders: Discharge Order (Routine); Ordered 07/03/25 Ordered By: Jm Narayan Admission Data Admit Date/Time: 07/01/25 01:41 Attending Provider: Jm Narayan Admit Provider: Kirit Mathews Primary Care Provider: PCP,NO Other Providers: Kirit Mathews; Simon Napoles; Lisa Handley; Terrell Boyle I.; Wilfredo Hutson II; Felicia Patterson; Ace Burns; Nikolas Paulson; Niharika Amor
[2025-07-03 10:17] VITALS: BP 118/76
== END 2025-07-03 12:28 | disposition home or self-care (01) | DRG 872 ==
LOC: ED 23:11 → 2N 07-01 01:41